=== PATIENT | female | born 1955 | race African-American/Black ===

== ENCOUNTER 2017-11-03 10:15 | Outpatient (RCR) | payer OTHER | END 2017-11-05 | disposition home or self-care (01) | LOC: PTY 10:15 | DX: M50.30 Other cervical disc degeneration, unspecified cervical region (principal); M51.36 Other intervertebral disc degeneration, lumbar region | CPT/HCPCS: 97110; 97162; G0283 ==

== ENCOUNTER 2017-11-15 11:15 | Outpatient (RCR) | payer OTHER | END 2017-12-06 | disposition home or self-care (01) | LOC: PTY 11:15 | DX: M50.30 Other cervical disc degeneration, unspecified cervical region (principal); M51.36 Other intervertebral disc degeneration, lumbar region ==